=== PATIENT | male | born 1965 | race Caucasian/White ===

== ENCOUNTER 2016-11-11 10:52 | Emergency (ER) | payer OTHER ==
[~2016-11-11] VITALS: Ht 177.8 cm; Wt 79.0 kg
[~2016-11-11 10:52] MED LIST: AMLO2.5T PO; DILA2TAB4 PO; Z.0.NO CURRENT MEDS; ZOFR4TAB3 SL
[2016-11-11 11:22] VITALS: BP 116/83; PULSE 81; RESP 18; TEMP 98; O2SAT 97
[2016-11-11] MEDS ORDERED: DESM1TAB15 PO (11:22)
[2016-11-11] MEDS ORDERED: LEVO.125 PO (11:22)
[2016-11-11] MEDS ORDERED: HYDR10TA65 PO (11:22)
[2016-11-11] MEDS ORDERED: CALC0.25 PO (11:22)
[2016-11-11] MEDS ORDERED: ALPR0.5T3 PO (11:22)
--- NOTE | 2016-11-11 11:29 | PD ---
HPI Chief Complaint: Chest Pain Time Seen by Provider: 11:07 Travel History International Travel<30 days: No Contact w/Intl Traveler<30days: No Traveled to known affect area: No History of Present Illness HPI The patient is a 51-year-old male who presents to the emergency department for chest pain. The patient notes a 2 week history of intermittent chest pain. He describes chest pain which is substernal, dull to achy, occasionally burning, that radiates to the jaw and left arm. The patient states the pain has been intermittent for the last 3 weeks but was worse this morning. The patient states the pain is worse in the morning, is not precipitated by lying supine or activity. He does note occasional shortness of breath and nausea without any vomiting or diaphoresis. The patient states he saw his primary physician, Dr. Garcia, who prescribed and anxiety medications. The patient notes a history of hyperlipidemia but is not currently treated with medications. He denies any personal history of hypertension, diabetes, tobacco use, or known coronary artery disease. The patient states he was adopted and does not know his family medical history. The patient states he had a stress test "years ago "that was negative. However , he states that was greater than 5 years ago. He denies any exertional symptoms, also states that lying supine and eating do not seem to aggravate or alleviate his pain. The patient does have a history of pituitary adenoma with resection and current treatment as well as a history of parotid cancer, thyroid cancer, and melanoma. PFSH Past Medical History Cancer: No Cardiovascular Problems: Yes ("POSSIBLE HEART ATTACK" 2012 X2 PER PATIENT) Diabetes: Yes Endocrine: Yes (DIABETES) Genitourinary: No Headaches: Yes Hepatitis: Yes (HX OF HEP B) Hiatal Hernia: No Hypertension: Yes Immune Disorder: No Musculoskeletal: No Neurologic: No Reproductive: No Respiratory: No Immunizations Current: Yes Past Surgical History Abdominal Surgery: Yes (CHOLECYSTECTOMY,UMBILICAL HERNIORRAPHY) AICD: No Cardiac Surgery: No Joint Replacement: No Oral Surgery: Yes (TONSILS) Pacemaker: No Thoracic Surgery: No Other Surgery: Yes (pituitary removed) Social History Alcohol Use: No Tobacco Use: No Substance Use: No Allergies-Medications (Allergen,Severity, Reaction): Coded Allergies: Contrast Media (Verified Allergy, Severe, anaphylaxis, 09/06/13) Vancomycin (Verified Allergy, Severe, anaphylaxis, 09/06/13) Sulfa (Verified Allergy, Unknown, 09/06/13) Reported Meds & Prescriptions Reported Meds & Active Scripts Active Zofran ODT (Ondansetron HCl) 4 Mg Tab 4 Mg SL Q6H PRN FOR NAUSEA/VOMITING Dilaudid (Hydromorphone HCl) 2 Mg Tab 2 Mg PO Q4H PRN Reported Alprazolam 0.5 Mg Tab 0.5 Mg PO Q6H PRN Desmopressin (Desmopressin Acetate) 0.1 Mg Tab 0.05 Mg PO HS Calcitriol 0.25 Mcg Cap 0.25 Mcg PO DAILY Hydrocortisone 10 Mg Tab 10 Mg PO BID Take with food to decrease GI upset Synthroid (Levothyroxine Sodium) 125 Mcg Tab 125 Mcg PO DAILY Amlodipine Besylate 2.5 mg (Amlodipine Besylate) 2.5 Mg Tab 2.5 Mg PO DAILY No Current Meds (Miscellaneous Medication) Misc Review of Systems Except as stated in HPI: all other systems reviewed are Neg General / Constitutional: No: Fever HENT: No: Lightheadedness Cardiovascular: Positive: Chest Pain or Discomfort, No: Diaphoresis, Dyspnea on exertion Respiratory: Positive: Shortness of Breath Gastrointestinal: Positive: Nausea, No: Vomiting, Abdominal Pain Musculoskeletal: No: Weakness Neurologic: No: Weakness, Dizziness Physical Exam Narrative GENERAL: Awake, alert, pleasant 51-year-old male who appears his stated age and is in no acute respiratory distress. SKIN: Focused skin assessment warm/dry. Tattoos noted on the left lower extremity. HEAD: Atraumatic. Normocephalic. EYES: Pupils equal and round. No scleral icterus. No injection or drainage. ENT: No nasal bleeding or discharge. Mucous membranes pink and moist. NECK: Trachea midline. No JVD. CARDIOVASCULAR: Regular rate and rhythm. No murmur appreciated. RESPIRATORY: No accessory muscle use. Clear to auscultation. Breath sounds equal bilaterally. GASTROINTESTINAL: Abdomen soft, non-tender, nondistended. No epigastric tenderness. MUSCULOSKELETAL: No obvious deformities. No clubbing. No cyanosis. No edema. NEUROLOGICAL: Awake and alert. No obvious cranial nerve deficits. Motor grossly within normal limits. Normal speech. PSYCHIATRIC: Somewhat anxious. Data Data Last Documented VS Vital Signs Date Time Temp Pulse Resp B/P Pulse Ox O2 Delivery O2 Flow Rate FiO2 11/11/16 13:55 63 130/72 100 11/11/16 11:22 98.0 18 Orders Electrocardiogram (11/11/16 11:20) Ckmb (Isoenzyme) Profile (11/11/16 11:20) Complete Blood Count With Diff (11/11/16 11:20) Comprehensive Metabolic Panel (11/11/16 11:20) Magnesium (Mg) (11/11/16 11:20) Prothrombin Time / Inr (Pt) (11/11/16 11:20) Act Partial Throm Time (Ptt) (11/11/16 11:20) Troponin I (11/11/16 11:20) Lipase (11/11/16 11:20) Chest, Single Ap (11/11/16 11:20) Ecg Monitoring (11/11/16 11:20) Bilateral Bp Monitoring (11/11/16 11:20) Iv Access Insert/Monitor (11/11/16 11:20) Oximetry (11/11/16 11:20) Oxygen Administration (11/11/16 11:20) Aspirin Chew (Aspirin Chew) (11/11/16 11:30) Nitroglycerin 2% Oint (Nitroglycerin 2% (11/11/16 11:30) Sodium Chloride 0.9% Flush (Ns Flush) (11/11/16 11:30) Sodium Chlorid 0.9% 500 Ml Inj (Ns 500 M (11/11/16 11:30) Troponin I (11/11/16 14:45) Labs Laboratory Tests Test 11/11/16 11/11/16 11:45 15:00 White Blood Count 5.8 TH/MM3 Red Blood Count 4.96 MIL/MM3 Hemoglobin 13.8 GM/DL Hematocrit 40.9 % Mean Corpuscular Volume 82.5 FL Mean Corpuscular Hemoglobin 27.9 PG Mean Corpuscular Hemoglobin 33.8 % Concent Red Cell Distribution Width 14.2 % Platelet Count 248 TH/MM3 Mean Platelet Volume 7.2 FL Neutrophils (%) (Auto) 63.1 % Lymphocytes (%) (Auto) 29.6 % Monocytes (%) (Auto) 5.4 % Eosinophils (%) (Auto) 1.4 % Basophils (%) (Auto) 0.5 % Neutrophils # (Auto) 3.7 TH/MM3 Lymphocytes # (Auto) 1.7 TH/MM3 Monocytes # (Auto) 0.3 TH/MM3 Eosinophils # (Auto) 0.1 TH/MM3 Basophils # (Auto) 0.0 TH/MM3 CBC Comment DIFF FINAL Differential Comment Prothrombin Time 10.9 SEC Prothromb Time International 1.0 RATIO Ratio Activated Partial 29.9 SEC Thromboplast Time Sodium Level 141 MEQ/L Potassium Level 3.8 MEQ/L Chloride Level 107 MEQ/L Carbon Dioxide Level 27.8 MEQ/L Anion Gap 6 MEQ/L Blood Urea Nitrogen 11 MG/DL Creatinine 0.87 MG/DL Estimat Glomerular Filtration 93 ML/MIN Rate Random Glucose 155 MG/DL Calcium Level 8.3 MG/DL Magnesium Level 1.8 MG/DL Total Bilirubin 0.3 MG/DL Aspartate Amino Transf 14 U/L (AST/SGOT) Alanine Aminotransferase 27 U/L (ALT/SGPT) Alkaline Phosphatase 50 U/L Total Creatine Kinase 50 U/L Troponin I LESS THAN 0.02 LESS THAN 0.02 NG/ML NG/ML Total Protein 6.7 GM/DL Albumin 3.5 GM/DL Lipase 257 U/L MDM Medical Decision Making Medical Screen Exam Complete: Yes Emergency Medical Condition: Yes Medical Record Reviewed: Yes Interpretation(s) EKG reveals normal sinus rhythm with a rate of 79. No ischemic changes or ectopy noted. Last Impressions Chest X-Ray 11/11/16 1120 Signed Impressions: Service Date/Time: Friday, November 11, 2016 11:26 - CONCLUSION: No acute disease. Jaden Chowdhury MD Laboratory Tests Test 11/11/16 11/11/16 11:45 15:00 White Blood Count 5.8 TH/MM3 Red Blood Count 4.96 MIL/MM3 Hemoglobin 13.8 GM/DL Hematocrit 40.9 % Mean Corpuscular Volume 82.5 FL Mean Corpuscular Hemoglobin 27.9 PG Mean Corpuscular Hemoglobin 33.8 % Concent Red Cell Distribution Width 14.2 % Platelet Count 248 TH/MM3 Mean Platelet Volume 7.2 FL Neutrophils (%) (Auto) 63.1 % Lymphocytes (%) (Auto) 29.6 % Monocytes (%) (Auto) 5.4 % Eosinophils (%) (Auto) 1.4 % Basophils (%) (Auto) 0.5 % Neutrophils # (Auto) 3.7 TH/MM3 Lymphocytes # (Auto) 1.7 TH/MM3 Monocytes # (Auto) 0.3 TH/MM3 Eosinophils # (Auto) 0.1 TH/MM3 Basophils # (Auto) 0.0 TH/MM3 CBC Comment DIFF FINAL Differential Comment Prothrombin Time 10.9 SEC Prothromb Time International 1.0 RATIO Ratio Activated Partial 29.9 SEC Thromboplast Time Sodium Level 141 MEQ/L Potassium Level 3.8 MEQ/L Chloride Level 107 MEQ/L Carbon Dioxide Level 27.8 MEQ/L Anion Gap 6 MEQ/L Blood Urea Nitrogen 11 MG/DL Creatinine 0.87 MG/DL Estimat Glomerular Filtration 93 ML/MIN Rate Random Glucose 155 MG/DL Calcium Level 8.3 MG/DL Magnesium Level 1.8 MG/DL Total Bilirubin 0.3 MG/DL Aspartate Amino Transf 14 U/L (AST/SGOT) Alanine Aminotransferase 27 U/L (ALT/SGPT) Alkaline Phosphatase 50 U/L Total Creatine Kinase 50 U/L Troponin I LESS THAN 0.02 LESS THAN 0.02 NG/ML NG/ML Total Protein 6.7 GM/DL Albumin 3.5 GM/DL Lipase 257 U/L Differential Diagnosis Differential diagnosis includes acute coronary syndrome, pericardial effusion, pericarditis, esophageal spasm, esophagitis, GERD, pancreatitis, pulmonary embolism, pleural effusion. Narrative Course IV was established, labs are drawn and sent, and the patient was placed on cardiac telemetry monitoring and continuous pulse oximetry monitoring. The patient was administered aspirin and nitroglycerin paste. Chest x-ray was obtained. EKG was ordered and interpreted. EKG is unremarkable. Chest x-rays negative. Patient was reevaluated at 12:30 PM, he was asymptomatic. I had a discussion with the patient regarding 23 hour observation to the chest pain Center versus serial enzymes and outpatient follow-up with his prep person, Dr. Aguirre. The patient would prefer to follow up outpatient, therefore, 3 hour troponin was ordered. The patient's second troponin is negative. The patient is still asymptomatic, no chest pain. Patient is low risk with atypical features, would prefer to follow up outpatient, therefore, will be provided a copy of his EKG and labs at discharge. His advised to return if symptoms worsen or progress. Diagnosis Primary Impression: Chest pain Qualified Code: R07.9 - Chest pain, unspecified type Patient Instructions: General Instructions Additional Instructions: Take a baby aspirin daily. Follow-up with your prep person and primary physician. Return if symptoms worsen or progress. Please provide the patient copy of his EKG and labs at discharge. Med/Other Pt SpecificInfo: No Change to Meds Disposition: 01 DISCHARGE HOME Condition: Stable Dexter Freedman MD Nov 11, 2016 11:29
[2016-11-11] MEDS ORDERED: SODIUM CHLORIDE 0.9% FLUSH 10 ML FLUSH IVF PRN (11:30)
[2016-11-11] MEDS ORDERED: SODIUM CHLORID 0.9% 500 ML INJ 500 ML IV ONE (11:30)
[2016-11-11] MEDS ORDERED: NITROGLYCERIN 2% OINT 1 GM PACKET TOP ONE (11:30)
[2016-11-11] MEDS ORDERED: ASPIRIN 81 MG CHEW TAB PO ONE (11:30)
[2016-11-11 11:53] VITALS: O2SAT 100
[2016-11-11 11:54] LABS: AUTOMATED NEUTROPHIL # 3.7 TH/MM3 (1.8-7.7); BASOPHIL % 0.5 % (0.0-2.0); EOSINOPHIL # 0.1 TH/MM3 (0-0.4); EOSINOPHIL % 1.4 % (0.0-4.0); HEMATOCRIT 40.9 % (39.0-51.0); HEMO FLAGS DIFF FINAL; LYMPH % 29.6 % (9.0-44.0); LYMPHOCYTE # 1.7 TH/MM3 (1.0-4.8); MEAN CELL VOLUME 82.5 FL (80.0-100.0); MEAN CORPUSCULAR HEMOGLOBIN 27.9 PG (27.0-34.0); MEAN CORPUSCULAR HGB CONC 33.8 % (32.0-36.0); MONO % 5.4 % (0.0-8.0); NEUT % 63.1 % (16.0-70.0); PLATELET COUNT 248 TH/MM3 (150-450); RED BLOOD COUNT 4.96 MIL/MM3 (4.50-5.90); RED CELL DISTRIBUTION WIDTH 14.2 % (11.6-17.2); WHITE BLOOD COUNT 5.8 TH/MM3 (4.0-11.0)
[2016-11-11 11:55] VITALS: BP_SYST 113; BP_SYST 116; BP_DIAS 70; BP_DIAS 83
[2016-11-11 12:03] LABS: CHLORIDE 107 MEQ/L (98-107); POTASSIUM 3.8 MEQ/L (3.5-5.1); SODIUM (NA) 141 MEQ/L (136-145)
[2016-11-11 12:08] LABS: APTT (PATIENT) 29.9 SEC (24.3-30.1); PROTHROMBIN TIME - PATIENT 10.9 SEC (9.8-11.6)
[2016-11-11 12:10] LABS: ANION GAP 6 MEQ/L (5-15); BICARBONATE 27.8 MEQ/L (21.0-32.0); BLOOD UREA NITROGEN 11 MG/DL (7-18); MAGNESIUM 1.8 MG/DL (1.5-2.5)
[2016-11-11 12:12] LABS: ALT (GPT) 27 U/L (12-78); AST (GOT) 14 U/L (15-37); GLOMERULAR FILTRATION RATE 93 ML/MIN (>89)
[2016-11-11 12:15] LABS: ALKALINE PHOSPHATASE 50 U/L (45-117); TOTAL BILIRUBIN ADULT 0.3 MG/DL (0.2-1.0)
[2016-11-11 12:16] LABS: CREATINE KINASE 50 U/L (39-308)
--- NOTE | 2016-11-11 12:29 | RADRPT ---
EXAM DATE/TIME: 11/11/2016 11:26 [facility] COMPARISON: No previous studies available for comparison. INDICATIONS : Chest pain, shortness of breath. MEDICAL HISTORY : Hypertension. Carcinoma, thyroid. SURGICAL HISTORY : Brain tumor removed. ENCOUNTER: Initial ACUITY: 1 day PAIN SCORE: 3/10 LOCATION: Bilateral chest FINDINGS: A single view of the chest demonstrates the lungs to be symmetrically aerated without evidence of mas s, infiltrate or effusion. The cardiomediastinal contours are unremarkable. Osseous structures are intact. CONCLUSION: No acute disease. Jaden Chowdhury MD on November 11, 2016 at 12:28 Board Certified Radiologist. This report was verified electronically.
[2016-11-11 13:55] VITALS: BP 130/72; PULSE 63; O2SAT 100
--- NOTE | 2016-11-12 08:05 | EKG ---
Date Performed: 11/11/2016 Time Performed: 11:02:58 PTAGE: 51 years EKG: Sinus rhythm NORMAL ECG INTERPRETATION BASED ON A DEFAULT AGE OF 42 YEARS PREVIOUS TRACING : 09/06/2013 11.31 DOCTOR: Prosper Fields Interpretating Date/Time 11/12/2016 08:03:48
== END 2016-11-11 16:31 | disposition home or self-care (01) ==
LOC: PHED 10:52
DX: R07.9 Chest pain, unspecified (principal); R68.84 Jaw pain; M79.602 Pain in left arm; R06.02 Shortness of breath; R11.0 Nausea; E78.5 Hyperlipidemia, unspecified; E11.9 Type 2 diabetes mellitus without complications; I10 Essential (primary) hypertension; Z86.79 Personal history of other diseases of the circulatory system; Z86.19 Personal history of other infectious and parasitic diseases; Z85.89 Personal history of malignant neoplasm of other organs and systems; Z85.850 Personal history of malignant neoplasm of thyroid; Z85.828 Personal history of other malignant neoplasm of skin
CPT/HCPCS: 71010; 80053; 82550; 83690; 83735; 84484; 85025; 85610; 85730; 93005; 96360; 99285; J7040